=== PATIENT | female | born 1940 | race Caucasian/White ===

== ENCOUNTER 2019-02-06 15:18 | Inpatient (IN) ==
[2019-02-06] MEDS ORDERED: ASPIRIN PO ONE (16:19)
[2019-02-06 16:31] LABS: BASO# 0.04 X1000 (0.0-0.2); BASO% 0.4 % (0.0-0.8); EOS# 0.12 X1000 (0.0-0.7); EOS% 1.1 % (0.0-10.0); HEMOGLOBIN 14.7 g/dL (12.0-16.0); IMM GRAN# 0.02 X1000 (0.0-0.04); IMM GRAN% 0.2 % (0.0-0.5); LYMPH% 18.8 % (20.5-51.1); MCH 30.3 PG (27-31); MCV 94.8 FL (81-99); MONO# 0.71 X1000 (0.11-0.59); MONO% 6.4 % (1.7-9.3); MPV 10.7 FL (7.4-10.4); NEUT# 8.19 X1000 (1.4-6.5); NEUT% 73.1 % (42.2-75.2); PLT 261 X1000 (130-400); RBC 4.85 XMIL (4.2-5.4); RDW 13.6 % (11.5-14.5); WBC 11.18 X1000 (4.8-10.8)
[2019-02-06 16:36] LABS: PROTIME 13.3 Seconds (11.0-16.0)
[2019-02-06 16:37] LABS: PTT 27.7 Seconds (22.3-41.8)
[2019-02-06] MEDS ORDERED: G.I. COCKTAIL PO ONE (16:37)
[2019-02-06 17:01] LABS: ALB/GLOB RATIO 1.8; ALBUMIN 4.8 g/dL (3.5-5.0); CALCIUM 9.6 mg/dL (8.8-10.2); POTASSIUM 4.1 mmol/L (3.5-5.1); TOTAL BILIRUBIN 0.65 mg/dL (0.20-1.00); TOTAL PROTEIN 7.5 g/dL (6.3-8.3)
--- NOTE | 2019-02-06 17:22 | Diag Imaging Result Doc PS360 ---
CHEST-2 VIEWS - 02/06/2019 INDICATION: epigastric pain COMPARISON: None FINDINGS: Lung volumes are critically low. There is some patchy bibasilar atelectasis. Heart size is normal. The left hemidiaphragm is elevated. No pneumothorax or significant pleural effusion. IMPRESSION: Critically low lung volumes with nonspecific bibasilar atelectasis. Electronically signed by Patrick Cherry 02/06/2019 5:19 PM
--- NOTE | 2019-02-06 17:41 | EKG Report ---
Test Performed on : 02/06/2019 5:34:53 PM Test Reason : EPIGASTRIC PAIN Blood Pressure : / mmHG Vent. Rate : 075 BPM Atrial Rate : 075 BPM P-R Int : 164 ms QRS Dur : 076 ms QT Int : 408 ms P-R-T Axes : 031 000 048 degrees QTc Int : 455 ms Normal sinus rhythm. with sinus arrhythmia. Nonspecific ST abnormality Abnormal ECG No previous ECGs available Unconfirmed Result
[2019-02-06] MEDS ORDERED: ZOFRAN IV ONE (17:56)
[2019-02-06] MEDS ORDERED: CARAFATE LIQUID PO ONE (17:56)
[2019-02-06] MEDS ORDERED: DEMEROL IV ONE (17:57)
--- NOTE | 2019-02-06 18:52 | PROVIDER DOCUMENTATION ---
This chart was entered by Mirella Carrasquillo Scribe, acting as scribe for Fab Riley MD. HPI-Abdominal Pain/GI Problem - General Source: patient, family () - History of Present Illness-ABD Nature of Presenting Problems: 78 yowf presents to the ed with her after having a episode with epigastric pain, n/v and left anterior shoulder pain. pt sts pain onset was after eating lunch with her and called 911. [t sts pain is sharp and stinging and sts feels like her gerd is flaring up but is much worse then my normal feeling. pt on exam is nontoxic in appearance Abdominal Pain Onset Location: reports: epigastric Pain Radiation: reports: shoulder (anterior) Quality of Pain: reports: sharp Severity in ED: reports: moderate Onset/Duration: reports: this afternoon (1500) Timing: reports: improving, intermittent Activities at Onset: reports: light activity Exposure to sick contacts?: No Modifying Factors: worse with: eating Associated Symptoms: reports: diaphoresis, heartburn, nausea, vomiting, other (left shoulder). denies: back/neck pain, chest pain, cough, diarrhea, fever/chills, headaches, shortness of breath Last BM: last night Dark Stools Present?: reports: none noticed Rectal Bleeding: reports: none # of Diarrhea Episodes: 0 Rectal Pain: reports: none # of Vomiting Episodes: 1 Emesis Description: reports: none Bruising or Bleeding Gums?: No Similar Symptoms Previously?: Yes (gerd) Recently seen or treated by another doctor?: No <Fab Riley - Last Filed: 02/06/19 18:49> <Radha Lauren - Last Filed: 02/06/19 23:41> - General Chief Complaint: Epigastric Pain Stated Complaint: EPIGASTRIC PAIN Time Seen by Provider: 02/06/19 15:49 Allergies/Adverse Reactions: Patient Allergies Allergy/AdvReac Type Severity Reaction Status Date / Time Sulfa (Sulfonamide Allergy SHORTNESS Verified 02/06/19 15:50 Antibiotics) OF BREATH morphine AdvReac NAUSEA/VOMI Verified 02/06/19 15:50 TING Home Medications: Home Medication List Medication Instructions Recorded Confirmed Last Taken Type ATORVAstatin [Lipitor] 10 mg PO QHS 02/06/19 02/06/19 02/05/19 History Albuterol Sulfate [Proair Hfa] 8.5 gm INHALATION DIRECTED PRN 02/06/19 02/06/19 Unknown History Fluticasone Propionate 16 gm NS DIRECTED PRN PRN 02/06/19 02/06/19 Unknown History Ipratropium 0.03% Nasal [place] 1 spray INTRANASAL DAILY 02/06/19 02/06/19 02/04/19 History [Atrovent 0.03% Nasal [place]] Losartan Potassium 100 mg PO DAILY 02/06/19 02/06/19 02/06/19 History Montelukast Sodium [Singulair] 10 mg PO DAILY 02/06/19 02/06/19 02/05/19 History Oxybutynin Chloride [Oxybutynin 10 mg PO DAILY 02/06/19 02/06/19 02/06/19 History Chloride ER] Ropinirole HCl 1 mg PO DIRECTED 02/06/19 02/06/19 Unknown History Spironolactone 25 mg PO DAILY 02/06/19 02/06/19 02/05/19 History Review of Systems - Adult - REVIEW OF SYSTEMS - ADULT Constitutional: denies: chills, fever Eyes: reports: no symptoms reported Ears, Nose, Mouth & Throat: reports: no symptoms reported Cardiovascular: denies: chest pain, palpitations, syncope Respiratory: denies: cough, shortness of breath, wheezing Gastrointestinal: reports: see HPI, abdominal pain, frequent heartburn, nausea, vomiting. denies: diarrhea Genitourinary: reports: no symptoms reported Musculoskeletal: reports: see HPI, joint pain (left anterior shoulder). denies: back pain, neck pain Integumentary: reports: no symptoms reported Neurological: denies: dizziness/vertigo, headache/migraines Psychiatric: reports: no symptoms reported Endocrine: reports: no symptoms reported Hematologic/Lymphatic: reports: no symptoms reported Allergic/Immunologic: reports: no symptoms reported All Other Systems: Reviewed and Negative <Fab Riley - Last Filed: 02/06/19 18:49> Past History - Adult - PAST MEDICAL HISTORY-ADULT Review of Records: reports: Old Records Reviewed, Nursing Assessment Review, Medications Reviewed, Social history reviewed & non-contributory. Major Childhood Illnesses: reports: denies history Cardiovascular: reports: HTN, hyperlipidemia Respiratory: reports: asthma, sleep apnea Gastrointestinal: reports: GERD Obstetrical/Gynecological: reports: denies history Genitourinary: reports: denies history Musculoskeletal: reports: denies history Neurological: reports: denies history Psychiatric: reports: denies history Endocrine/Immune: reports: denies history Other Conditions: reports: other (restless legs syndrome) - PRIOR SURGERIES/PROCEDURES Surgical/Procedure History: reports: hysterectomy, other (colon sx) - IMMUNIZATION STATUS Childhood Immunizations: See Nurse Assessment Flu Vaccine: See Nurse Assessment - FAMILY HISTORY Family History: reviewed, not pertinent - SOCIAL HISTORY Smoking: denies Substance Use: alcohol Alcohol Use Frequency: occasionally Number of drinks per typical drinking period:: 3-4 drinks Living Situation: family <Fab Riley - Last Filed: 02/06/19 18:49> Physical Exam-General - PHYSICAL EXAM-ADULT Initial Vital Signs Reviewed: Yes - CONSTITUTIONAL General Appearance: appears well, alert, mild distress, obese - EYES Eyes: PERRL/EOMI, pink conjunctivae - HEAD, EARS, NOSE, MOUTH & THROAT HENMT: moist mucous membranes - NECK Neck: non-tender, full range of motion, supple, normal inspection - RESPIRATORY Respiratory: chest non-tender, lungs clear, normal breath sounds - CARDIOVASCULAR Cardiovascular: normal peripheral pulses, regular rate, rhythm - CHEST (BREASTS) Chest/Breast: deferred - GASTROINTESTINAL (ABDOMEN) Abdominal Exam: normal bowel sounds, soft, no organomegaly, no pulsatile mass, tenderness (epigastric). negative: distended, guarding, rigid, rebound - GENITOURINARY Female Genitalia/Pelvic Exam: deferred Rectal Exam: deferred Hemoccult Exam: deferred - LYMPHATIC Lymphatic: no adenopathy - MUSCULOSKELETAL Back Exam: normal inspection, no CVA tenderness, no vertebral tenderness Extremity: normal range of motion, non-tender, normal gait, normal inspection - SKIN Integumentary: normal color, normal turgor, warm/dry - NEUROLOGIC Neurologic: grossly normal - PSYCHIATRIC Psych/Mental Status: normal mood/affect, normal thought content, normal thought process, oriented x 3 <Fab Riley - Last Filed: 02/06/19 18:49> Progress - PLAN OF CARE/RESULTS Progress/Plan/Lab Results: Vital Signs - 8 hr 02/06/19 15:45 02/06/19 15:46 02/06/19 16:00 Temperature 97.7 F Pulse Rate 74 69 69 Respiratory Rate 18 15 17 Blood Pressure 196/95 O2 Sat by Pulse Oximetry 98 98 96 Laboratory Results - last 24 hr 02/06/19 02/06/19 02/06/19 16:15 16:15 16:15 WBC 11.18 H RBC 4.85 Hgb 14.7 Hct 46.0 MCV 94.8 MCH 30.3 MCHC 32.0 L RDW Std Deviation 13.6 Plt Count 261 MPV 10.7 H Immature Gran % (Auto) 0.2 Neut % (Auto) 73.1 Lymph % (Auto) 18.8 L Cooper % (Auto) 6.4 Eos % (Auto) 1.1 Baso % (Auto) 0.4 Immature Gran # (Auto) 0.02 Neut # (Auto) 8.19 H Lymph # (Auto) 2.10 Cooper # (Auto) 0.71 H Eos # (Auto) 0.12 Baso # (Auto) 0.04 PT INR PTT (Actin FS) Sodium 143 Potassium 4.1 Chloride 103 Carbon Dioxide 24 L Anion Gap 16 BUN 17 Creatinine 1.0 H Estimated GFR/1.73 m2 54 BUN/Creatinine Ratio 17 Glucose 132 H Calculated Osmolality 288 Calcium 9.6 Total Bilirubin 0.65 AST 15 ALT 10 Alkaline Phosphatase 73 Creatine Kinase 42 Troponin T Zrj-P-Ujxmqhetsde Pept 75 Total Protein 7.5 Albumin 4.8 Globulin 2.7 Albumin/Globulin Ratio 1.8 02/06/19 02/06/19 16:15 16:15 WBC RBC Hgb Hct MCV MCH MCHC RDW Std Deviation Plt Count MPV Immature Gran % (Auto) Neut % (Auto) Lymph % (Auto) Cooper % (Auto) Eos % (Auto) Baso % (Auto) Immature Gran # (Auto) Neut # (Auto) Lymph # (Auto) Cooper # (Auto) Eos # (Auto) Baso # (Auto) PT 13.3 INR 1.00 PTT (Actin FS) 27.7 Sodium Potassium Chloride Carbon Dioxide Anion Gap BUN Creatinine Estimated GFR/1.73 m2 BUN/Creatinine Ratio Glucose Calculated Osmolality Calcium Total Bilirubin AST ALT Alkaline Phosphatase Creatine Kinase Troponin T < 0.010 Lkl-K-Wdyfyuhfokv Pept Total Protein Albumin Globulin Albumin/Globulin Ratio Orders Category Date Time Status Cardiac Monitoring DIRECTED Care 02/06/19 16:20 Active Oxygen Therapy- ED Nursing DIRECTED Care 02/06/19 16:20 Active CHEST-2 VIEWS [RAD] Stat Exams 02/06/19 16:20 Taken CBC WITH ELECTRONIC DIFF [HEME] Stat Lab 02/06/19 16:15 Completed CK PROFILE [SP CHEM] Stat Lab 02/06/19 16:15 Completed COMPREHENSIVE METABOLIC PANEL [CHEM] Stat Lab 02/06/19 16:15 Completed PRO B-NATRIURETIC PEPTIDE Stat Lab 02/06/19 16:15 Completed PROTIME WITH INR [COAG] Stat Lab 02/06/19 16:15 Completed PTT [COAG] Stat Lab 02/06/19 16:15 Completed TROPONIN T Stat Lab 02/06/19 16:15 Completed Aspirin Med 02/06/19 16:19 Discontinued 325 mg PO NOW ONE [place]ido/[place] Alk/Al&mg Hydrox [G.i. Cocktail] Med 02/06/19 16:37 Discontinued 30 ml PO NOW ONE CP/SOB/Palp >45 yrs of Age Stat Oth 02/06/19 16:19 Ordered EKG [EKG] Stat Ther 02/06/19 16:20 Ordered Result Diagrams: 02/06/19 16:15 02/06/19 16:15 - REASSESSMENT Reassessment #1 Time Reassessed: 17:51 (pt given GI cocktail and vomited ) Status: unchanged - EKG 1 Time of EKG reading by physician:: 17:34 EKG Read and Signed by:: Fab Riley EKG Interpretation (*Must complete 3 of following elements*): Abnormal Rate: 75 Rhythm: nsr with sinus arrhythmia [place]: normal QRS: normal PA Interval: normal Prior EKG Comparison: no prior EKG Comments: nonspecific ST abnormality - XRAY 1 XRAY: Bilateral XRAY Study: Chest Impression: See EMR Report (CHEST-2 VIEWS - 02/06/2019 INDICATION: epigastric pain COMPARISON: None FINDINGS: Lung volumes are critically low. There is some patchy bibasilar atelectasis. Heart size is normal. The left hemidiaphragm is elevated. No pneumothorax or significant pleural effusion. IMPRESSION: Critically low lung volumes with nonspecific bibasilar atelectasis. Electronically signed by Patrick Cherry 02/06/2019 5:19 PM 02/06/19 2156 Interpreting Physician: Patrick Cherry MD Dictated Date/Time: 02/06/19 1701 cc: Fab Riley MD; None,PCP) - CHANGE OF SHIFT REPORT (ED Provider) 1 Report Given and Care Transferred to:: Dr Lauren Time of Transfer: 19:00 Items Pending: Labs, Other (meds) <Fab Riley - Last Filed: 02/06/19 18:49> - PLAN OF CARE/RESULTS Progress/Plan/Lab Results: Vital Signs - 8 hr 02/06/19 15:45 02/06/19 15:46 02/06/19 16:00 Temperature 97.7 F Pulse Rate 74 69 69 Respiratory Rate 18 15 17 Blood Pressure 196/95 O2 Sat by Pulse Oximetry 98 98 96 02/06/19 16:15 02/06/19 16:30 02/06/19 16:54 Temperature Pulse Rate 65 64 68 Respiratory Rate 19 23 14 Blood Pressure O2 Sat by Pulse Oximetry 96 97 98 02/06/19 17:00 02/06/19 17:27 02/06/19 17:30 Temperature Pulse Rate 70 92 H Respiratory Rate 21 27 H Blood Pressure O2 Sat by Pulse Oximetry 96 96 93 L 02/06/19 17:45 02/06/19 18:00 02/06/19 18:15 Temperature Pulse Rate 74 76 74 Respiratory Rate 19 15 21 Blood Pressure O2 Sat by Pulse Oximetry 94 L 94 L 93 L 02/06/19 18:30 02/06/19 18:45 02/06/19 19:00 Temperature Pulse Rate 73 68 68 Respiratory Rate 20 21 21 Blood Pressure O2 Sat by Pulse Oximetry 92 L 92 L 92 L Laboratory Results - last 24 hr 02/06/19 02/06/19 02/06/19 16:15 16:15 16:15 WBC 11.18 H RBC 4.85 Hgb 14.7 Hct 46.0 MCV 94.8 MCH 30.3 MCHC 32.0 L RDW Std Deviation 13.6 Plt Count 261 MPV 10.7 H Immature Gran % (Auto) 0.2 Neut % (Auto) 73.1 Lymph % (Auto) 18.8 L Cooper % (Auto) 6.4 Eos % (Auto) 1.1 Baso % (Auto) 0.4 Immature Gran # (Auto) 0.02 Neut # (Auto) 8.19 H Lymph # (Auto) 2.10 Cooper # (Auto) 0.71 H Eos # (Auto) 0.12 Baso # (Auto) 0.04 PT INR PTT (Actin FS) Sodium 143 Potassium 4.1 Chloride 103 Carbon Dioxide 24 L Anion Gap 16 BUN 17 Creatinine 1.0 H Estimated GFR/1.73 m2 54 BUN/Creatinine Ratio 17 Glucose 132 H Calculated Osmolality 288 Calcium 9.6 Total Bilirubin 0.65 AST 15 ALT 10 Alkaline Phosphatase 73 Creatine Kinase 42 Troponin T Hsq-A-Gqcjfabjard Pept 75 Total Protein 7.5 Albumin 4.8 Globulin 2.7 Albumin/Globulin Ratio 1.8 02/06/19 02/06/19 02/06/19 16:15 16:15 20:45 WBC RBC Hgb Hct MCV MCH MCHC RDW Std Deviation Plt Count MPV Immature Gran % (Auto) Neut % (Auto) Lymph % (Auto) Cooper % (Auto) Eos % (Auto) Baso % (Auto) Immature Gran # (Auto) Neut # (Auto) Lymph # (Auto) Cooper # (Auto) Eos # (Auto) Baso # (Auto) PT 13.3 INR 1.00 PTT (Actin FS) 27.7 Sodium Potassium Chloride Carbon Dioxide Anion Gap BUN Creatinine Estimated GFR/1.73 m2 BUN/Creatinine Ratio Glucose Calculated Osmolality Calcium Total Bilirubin AST ALT Alkaline Phosphatase Creatine Kinase Troponin T < 0.010 < 0.010 Lkm-V-Edpdgtrbydn Pept Total Protein Albumin Globulin Albumin/Globulin Ratio Orders Category Date Time Status Cardiac Monitoring DIRECTED Care 02/06/19 16:20 Active Oxygen Therapy- ED Nursing DIRECTED Care 02/06/19 16:20 Active CHEST-2 VIEWS [RAD] Stat Exams 02/06/19 16:20 Completed CBC WITH ELECTRONIC DIFF [HEME] Stat Lab 02/06/19 16:15 Completed CK PROFILE [SP CHEM] Stat Lab 02/06/19 16:15 Completed COMPREHENSIVE METABOLIC PANEL [CHEM] Stat Lab 02/06/19 16:15 Completed PRO B-NATRIURETIC PEPTIDE Stat Lab 02/06/19 16:15 Completed PROTIME WITH INR [COAG] Stat Lab 02/06/19 16:15 Completed PTT [COAG] Stat Lab 02/06/19 16:15 Completed TROPONIN T Stat Lab 02/06/19 16:15 Completed TROPONIN T Stat Lab 02/06/19 20:45 Completed Aspirin Med 02/06/19 16:19 Discontinued 325 mg PO NOW ONE [place] Alk/Al&mg Hydrox [G.i. Cocktail] Med 02/06/19 16:37 Discontinued 30 ml PO NOW ONE Meperidine [Demerol] Med 02/06/19 17:57 Discontinued 25 mg IV NOW ONE Ondansetron Odt [Zofran Odt] Med 02/06/19 19:31 Discontinued 4 mg PO NOW ONE Ondansetron [Zofran] Med 02/06/19 17:56 Discontinued 4 mg IV NOW ONE Sucralfate [Carafate Liquid] Med 02/06/19 17:56 Discontinued 1 gm PO NOW ONE CP/SOB/Palp >45 yrs of Age Stat Oth 02/06/19 16:19 Ordered EKG [EKG] Stat Ther 02/06/19 16:20 Draft Patient signed out to me pending repeat trop and reeval. Patient has continued to vomit up medications given PO and fails PO challenge. CT Abd pelvis ordered showing concern for obstructed hiatal hernia. Spoke to Dr Jamil, stone spreader operator for general surgery who wanted NGT placed, admit to hospitalist and will see patient in the AM. Spoke to Dr Rawls stone spreader operator for hospitalist who accepted patient for admission. Result Diagrams: 02/06/19 16:15 02/06/19 16:15 - CONSULTS/PCP/HOSPITALIST Notification #1 *Consult/PCP/Hospitalist*: Dr Jamil Time Discussed: 23:22 Consult Disposition: other (NGT, admit to hospitalist, will see pt in the AM) #2 Consult: Dr Rawls Time Discussed: 22:35 Consult Disposition: Admit <Radha Lauren - Last Filed: 02/06/19 23:41> Departure - Critical Care Note This patient required my direct & personal management of CC.: No <Fab Riley - Last Filed: 02/06/19 18:49> - Departure Date of Disposition Decision: 02/06/19 Time of Disposition Decision: 21:28 Certified Medical Emergency: Emergent <Radha Lauren - Last Filed: 02/06/19 23:41> - Departure DIAGNOSIS: Epigastric abdominal pain, Intractable nausea and vomiting, Hiatal hernia with obstruction but no gangrene, Pneumonia Disposition: ADMITTED INPATIENT 09 Condition: Stable Additional Instructions: ED Follow Up Instructions: You have been treated by a care provider in the Emergency Department. These instructions are being provided to you so you can have an understanding of how to care for yourself upon discharge. Upon discharge from the Emergency Department, you are responsible for making arrangements for follow-up care by a physician of your choice. Take all prescribed medications as directed. Return to the Emergency Department immediately for any new or worsening symptoms. You may call the Physician Referral phone number at [phone] to obtain a list of Physicians who are taking new patients. Referrals and Follow-Ups: None,PCP [Primary Care Provider] - Attestation - Physician/ TAYLA Attestation Patient care was provided by Advanced Practice Provider:: No The physician spent face to face time with patient:: Yes Advanced Practice Provider documentation review:: Supervising physician onsite and consulted in the evaluation and care of this patient. The physician did have a face to face encounter with the patient. <Fab Riley - Last Filed: 02/06/19 18:49> This chart was documented by the indicated scribe, (Mirella Carrasquillo Scribe) and accurately reflects the services I performed and decisions made by me, Fab Riley MD, as attested by the provider's signature.
[2019-02-06] MEDS ORDERED: ZOFRAN ODT PO ONE (19:31)
[2019-02-06] MEDS ORDERED: PHENERGAN IM ONE (21:38)
[2019-02-06] MEDS ORDERED: ZITHROMAX 500 MG/NS 500 MG/250 ML IVPB IV ONE (23:36)
[2019-02-06] MEDS ORDERED: ROCEPHIN 1 GM in NS 50 ML IV ONE (23:36)
[2019-02-07] MEDS ORDERED: DUONEB (A & A) INH PRN (00:20)
[2019-02-07] MEDS ORDERED: ZOFRAN IV PRN (00:20)
[2019-02-07] MEDS ORDERED: ROCEPHIN ONE (01:08)
[2019-02-07] MEDS ORDERED: NS 50 ML ONE (01:08)
[2019-02-07] MEDS: ROCEPHIN 1 GM in NS 50 ML IV SCH (01:09)
--- NOTE | 2019-02-07 01:58 | HISTORY AND PHYSICAL ---
PRIMARY CARE PROVIDER: Is in [place]. DUST COLLECTOR ORE CRUSHING: Is in [place]. CHIEF COMPLAINT: Abdominal pain. HISTORY OF PRESENT ILLNESS: Ms. Conde is a 78-year-old female who carries a past medical history of hypertension, hyperlipidemia, asthma, sleep apnea, GERD, hiatal hernia, restless leg syndrome, wears home O2 at night. After having a hysterectomy in 2008. She has had part of her colon removed secondary to a flat polyp. She reports her and her were on their way from [place] to [place] for vacation, they stopped to have lunch and she started having an immediate episode of epigastric pain with nausea and vomiting that radiated to the left side of her back, the pain was sharp and burning, it felt like she was having heartburn, but much worse. Workup in the ED with abdomen and pelvis CT showed small bowel obstruction, and per ED report pneumonia. She was initiated on IV antibiotics, made NPO, consulted Dr. Jamil. An NG tube will be placed. We will continue with IV fluids, IV antibiotics, antiemetic, and pain regimen. The patient is currently belching in the room, she has had a bowel movement while in the ED, not currently passing any gas, and reports she just had a colonoscopy a month ago in [place]. PAST MEDICAL HISTORY: 1. Hypertension. 2. Hyperlipidemia. 3. Asthma. 4. Sleep apnea. 5. Gastroesophageal reflux disease. 6. Restless leg syndrome. 7. Home O2 at night. PAST SURGICAL HISTORY: 1. Hysterectomy in 2008. 2. Partial colon removal secondary to a flat polyp. 3. Colonoscopy 1 month ago. FAMILY HISTORY: Noncontributory. SOCIAL HISTORY: She is . She lives in [place]. Only occasional alcohol. No tobacco or illicit drug use. ALLERGIES: Sulfa causes shortness of breath. Morphine causes nausea and vomiting. HOME MEDICATIONS: 1. ProAir inhaler. 2. Lipitor. 3. Fluticasone. 4. Ipratropium. 5. Atrovent. 6. Losartan. 7. Singulair. 8. Oxybutynin. 9. Requip. 10. Spironolactone. REVIEW OF SYSTEMS: Twelve-point review of systems was completely negative except for those mentioned in the HPI. PHYSICAL EXAMINATION: VITAL SIGNS: Temperature 97.7 degrees, heart rate 68, respirations 22, blood pressure is anywhere from 92%-98%, blood pressure 196/95. GENERAL: Ms. Alarcon is a 78-year-old female who is sitting on the side of bed, hunched over, belching, complaining of abdominal pain that radiates to her back. HEENT: Atraumatic, normocephalic. PERRL. NECK: Supple. Trachea midline. CARDIOVASCULAR: S1, S2 appreciated. No murmurs, gallops or rubs noted. RESPIRATORY: Lung sounds clear bilaterally. GI: Tender to palpation. Hypoactive bowel sounds. EXTREMITIES: No signs of clubbing or cyanosis. IMAGING: Abdomen CT showed small bowel obstruction and pneumonia. Chest x-ray, critically low lung volumes with nonspecific bibasilar atelectasis. LABORATORY DATA: White count of 11, hemoglobin and hematocrit 14 and 46, platelet count is 261,000. Sodium 143, potassium 4.1, BUN 17, creatinine 1, blood glucose is 132. Two sets of cardiac enzymes have been negative. ASSESSMENT AND PLAN: 1. Small bowel obstruction. ED has spoke with Dr. Jamil, they request an NG be placed. The patient is currently belching. She has had a bowel movement while in the ED. She is not currently passing gas. We will start her on IV fluids, make her NPO, antiemetics, and pain regimen. We will do a follow up KUB in the a.m., and await Dr. Jamil's recommendation. 2. Possible pneumonia seen on CT imaging, currently awaiting the final report. She has already been started on antibiotics. We will continue with antibiotics and follow up with a chest x- ray in the a.m. The patient does not complain of any cough, fever or chills. 3. Hypoxemia. The patient does wear home O2 at night. We will continue with supplemental O2. 4. Asthma. We will do p.r.n. DuoNeb, currently not in any exacerbation. 5. Hypertension. 6. Hyperlipidemia. 7. Gastroesophageal reflux disease. We will start her on a proton pump inhibitor. 8. Restless leg syndrome. 9. Acute kidney injury. We will continue with IV hydration, recheck her creatinine in the a.m. 10. Further recommendation to follow physician evaluation, laboratory and diagnostic data. Dictated by JONI Rivers for Chidi Rawls MD I have performed a face to face diagnostic evaluation. Labs/xrays- reviewed. Exam- Chest- clear, CV- regular, Abd- diffuse tenderness. A/P- Small bowel Obstruction- Admit, NG, IV fluids, NPO, General surgery consult. Dr. Rawls. cc: Chidi Rawls MD [facility]
[2019-02-07] MEDS: ZITHROMAX 500 MG/NS 500 MG/250 ML IVPB IV SCH (02:29)
[2019-02-07 05:17] LABS: BASO# 0.02 X1000 (0.0-0.2); BASO% 0.1 % (0.0-0.8); EOS# 0.01 X1000 (0.0-0.7); EOS% 0.1 % (0.0-10.0); HEMATOCRIT 43.9 % (37.0-47.0); HEMOGLOBIN 14.4 g/dL (12.0-16.0); IMM GRAN# 0.02 X1000 (0.0-0.04); IMM GRAN% 0.1 % (0.0-0.5); LYMPH# 1.21 X1000 (1.2-3.4); LYMPH% 8.7 % (20.5-51.1); MCHC 32.8 g/dL (33-37); MCV 94.4 FL (81-99); MONO# 0.97 X1000 (0.11-0.59); MPV 10.3 FL (7.4-10.4); NEUT# 11.63 X1000 (1.4-6.5); PLT 256 X1000 (130-400); RBC 4.65 XMIL (4.2-5.4); RDW 13.5 % (11.5-14.5); WBC 13.86 X1000 (4.8-10.8)
[2019-02-07 05:37] LABS: ALB/GLOB RATIO 1.5; ALBUMIN 4.5 g/dL (3.5-5.0); CALCIUM 9.9 mg/dL (8.8-10.2); MAGNESIUM 2.1 mg/dL (1.5-2.7); POTASSIUM 4.1 mmol/L (3.5-5.1); TOTAL BILIRUBIN 0.6 mg/dL (0.20-1.00); TOTAL PROTEIN 7.5 g/dL (6.3-8.3)
[2019-02-07] MEDS: SODIUM CHLORIDE 0.9% INJ SCH (06:26)
[2019-02-07] MEDS: PEPCID IV SCH ×2 (06:27→17:37)
--- NOTE | 2019-02-07 06:39 | Diag Imaging Result Doc PS360 ---
CHEST-PORTABLE - 02/07/2019 INDICATION: ng placement COMPARISON: 02/06/2019 FINDINGS: There is a nasogastric tube in good position in the stomach. IMPRESSION: Nasogastric tube in good position in the stomach. Electronically signed by Patrick Cherry 02/07/2019 6:37 AM
--- NOTE | 2019-02-07 06:57 | Diag Imaging Result Doc PS360 ---
CHEST-PORTABLE - 02/07/2019 INDICATION: pna COMPARISON: 02/07/2019 FINDINGS: Stable nasogastric tube in good position. Stable left hemidiaphragm elevation. Stable adjacent atelectasis or infiltrate. There is some faint atelectasis or infiltrate at the right lower lobe as well. Heart size is top normal. No large pleural effusion. IMPRESSION: Nonspecific bibasilar atelectasis or infiltrates. Electronically signed by Patrick Cherry 02/07/2019 6:55 AM
--- NOTE | 2019-02-07 06:58 | Diag Imaging Result Doc PS360 ---
KUB ABDOMEN - 02/07/2019 INDICATION: SBO COMPARISON: None FINDINGS: There is a nonobstructive bowel gas pattern. No free air or abdominal calcifications. Average amount of stool in the colon. IMPRESSION: No acute disease. Electronically signed by Patrick Cherry 02/07/2019 6:56 AM
--- NOTE | 2019-02-07 07:30 | Diag Imaging Result Doc PS360 ---
EXAM: CT ABDOMEN/PELVIS W/O CONTRAST INDICATION: n/v, intractable TECHNIQUE: This exam was performed using automated exposure control, adjustment of mA or kV according to patient size, and/or use of iterative reconstruction technique. COMPARISON: None. FINDINGS: There is a large diaphragmatic hernia on the left the stomach is moderately distended. There is subsegmental atelectasis +/- infiltrate at both lung bases. The GE junction remains below the diaphragm. There is no esophageal distention. The gallbladder, liver, spleen, pancreas, and adrenal glands are unremarkable. There is a small right renal cyst. The kidneys are essentially unremarkable, otherwise. The urinary bladder is largely nondistended and is unremarkable, otherwise. There is a surgical staple line associated with the descending colon. There is uncomplicated diverticulosis coli. The appendix is normal. There is multilevel spondylosis. IMPRESSION: 1.Large left diaphragmatic hernia with a portion of the stomach in the hernial sac that is distended partial obstruction cannot be excluded. However, the esophagus is not dilated. 2.Bibasilar atelectasis +/- infiltrate. 3.Other incidental/nonacute findings detailed above. Electronically signed by John Foley 02/07/2019 7:28 AM
[2019-02-07] MEDS: NS 1,000 ML IV SCH ×3 (09:24→19:57)
--- NOTE | 2019-02-07 10:55 | Diag Imaging Result Doc PS360 ---
EXAM: GI SERIES PARTIAL INDICATION: Evaluate for stomach obstruction TECHNIQUE: Barium contrast was infused via an indwelling NG tube under fluoroscopy. Spot images were obtained. COMPARISON: No prior upper GIs available for comparison. Comparison is to a recent CT of the abdomen and pelvis without contrast dated 02/06/2019 FINDINGS: The large left paraesophageal hernia seen on the previous study is again identified. Upon infusion, barium filled the antrum of the stomach initially. Although there is narrowing of the stomach at the gastric body as it passes through the diaphragmatic defect, barium did appear to pass freely into the fundus of the stomach indicating that there is no complete obstruction. Toward the end of the study, there was some reflux of barium into the esophagus. IMPRESSION: Large paraesophageal hernia that was also seen on the recent CT. However, barium flowed freely through the diaphragmatic defect indicating that there is no complete obstruction. Electronically signed by Jhon Foley 02/07/2019 10:53 AM
--- NOTE | 2019-02-07 15:15 | GENERAL SURGERY CONSULTATION ---
DATE: 02/07/2019 TIME: 2:45 p.m. HISTORY OF PRESENT ILLNESS: Ms Alarcon is feeling better. I have been asked to see her regarding her hiatal hernia. She was admitted last night with the chest pain, nausea, and vomiting. Also reported heartburn. She has a known hiatal hernia but has never had symptoms such as this. Her CT scan suggested a significant herniated stomach with even possible obstruction. She was admitted with an NG tube placed. She had a cardiac workup that was negative. PAST MEDICAL HISTORY: Her past history is pertinent for hypertension, hyperlipidemia, asthma, sleep apnea, gastroesophageal reflux, restless legs. PAST SURGICAL HISTORY: Previous surgeries include partial colon resection and a hysterectomy She has had EGDs and colonoscopies in the past. A recent colonoscopy showed her colon to be clear. MEDICATIONS AT HOME: Include an inhaler, Lipitor, fluticasone, ipratropium, Atrovent, losartan, Singulair, oxybutynin, Requip, and Aldactone. ALLERGIES: She has an allergy to sulfa and morphine. SOCIAL HISTORY: She is . She lives in [place]. She rarely drinks alcohol. Denies tobacco or illicit drug use. FAMILY HISTORY: Not known. REVIEW OF SYSTEMS: Negative in all the other ten subsystems except the ones noted above. PHYSICAL EXAMINATION: Vital Signs: She is afebrile. Heart rate is 93, blood pressure 159/86. No cervical adenopathy. Bilateral breath sounds. Heart: Regular rate and rhythm. Abdomen: Soft. She is nontender. No peripheral edema. She is sleepy but she arouses and answered questions. DIAGNOSTIC DATA: CT scan shows the hiatal hernia, it looks like a paraesophageal hernia with a portion of the distal stomach in the chest. An upper GI showed that the contrast went from the proximal stomach into the distal stomach without difficulty. ASSESSMENT: Symptomatic hiatal hernia, paraesophageal type. PLAN: I have discussed surgery with them. I have discussed the plan to repair the defect in the diaphragm and do a wrap of the upper stomach, and even possibly tack the distal stomach. I discussed with them that if she continues satisfactory that she could actually try liquids and go home to have this done, if that is what they prefer, but right now, we do have her scheduled for surgery on Monday the if she present wants to proceed in-house here. We discussed the benefits and risks of the surgery, and they understand. cc: Carlos Enrique Jamil MD
--- NOTE | 2019-02-07 16:36 | PROGRESS NOTE ---
DATE: 02/07/2019 SUBJECTIVE: Ms. Conde is a 78-year-old. She was on her way from [place] to [place], stopped at a restaurant here in [place], and she developed nausea, vomiting, and pain around the left side of her back. The pain was sharp and burning, felt like having heartburn, but much worse. Workup in the ER, abdominal and pelvic CT suggested maybe small-bowel obstruction. However, she had seen Dr. Jamil and he felt like she had symptomatic hiatal hernia. PAST MEDICAL HISTORY: 1. Hypertension. 2. Hyperlipidemia. 3. Asthma. 4. Sleep apnea. 5. Gastroesophageal reflux disease. 6. Restless legs syndrome. 7. Home O2 at night. PAST SURGICAL HISTORY: 1. Hysterectomy in 2008. 2. Partial colon removed secondary to a flat polyp. 3. Colonoscopy one month ago. OBJECTIVE: She is comfortable, has an NG tube in place, was sleeping, easy to arouse. Temperature 97.8 degrees, pulse 79, respirations 16, blood pressure 141/85. Pupils are equal and round. Lungs: Clear in all lung leon. Cardiovascular: Regular in rate without murmur or S3. Good urine output. LABORATORY DATA: Review of her lab from today: White count 13,860, hematocrit 43, platelet count 256,000. Sodium 145, potassium 4.1, chloride 105, BUN 18, creatinine 1.0. AST 14, ALT is 8, albumin is 4.5. ProTime is 13. ASSESSMENT AND PLAN: Symptomatic hiatal hernia. Esophageal type. Dr. Jamil has discussed plan to repair the defect in the diaphragm and do a wrap of the upper stomach, even possibly track the distal stomach. If she continues satisfactorily, she could try liquids, and go home and have this done if that is what they prefer. She feels better. Continue NG tube suction. Review of her orders: She is getting ceftriaxone 1 g q.24 hours, azithromycin 500 mg IV q.24 hours, aspirin 325 mg (got 1 dose). There was a question on whether she had an infiltrate by CT scan, so that is why we started the antibiotics. We will follow up with chest x-ray. Clinically, not sure if she has a pneumonia. She has some supplemental O2. Blood pressures appear well controlled. I looked over her list of medications at home. I think we can hold most of it. Continue current medications. She is on Pepcid 20 mg IV q.12. cc: Carlos Haro MD
[2019-02-08] MEDS: ROCEPHIN 1 GM in NS 50 ML IV SCH (00:31)
[2019-02-08] MEDS: ZITHROMAX 500 MG/NS 500 MG/250 ML IVPB IV SCH (02:05)
[2019-02-08 05:21] LABS: URINE SOURCE CLEAN CATCH
[2019-02-08 05:24] LABS: BILIRUBIN URINE NEGATIVE (NEGATIVE); BLOOD URINE NEGATIVE (NEGATIVE); COLOR YELLOW; GLUCOSE URINE NEGATIVE (NEGATIVE); KETONE URINE 10 mg/dL (NEGATIVE); LEUKOCYTES URINE MODERATE (NEGATIVE); NITRITE URINE NEGATIVE (NEGATIVE); PROTEIN URINE TRACE mg/dL (NEGATIVE); SP GRAVITY URINE 1.024; TURBIDITY URINE CLEAR (CLEAR); UR EPITHELIAL CELLS <10 /HPF (<10); URINE BACTERIA NEGATIVE /HPF; URINE RBC <10 /HPF (<10); URINE WBC TNTC /HPF (<10); UROBILINOGEN URINE NORMAL (NORMAL)
[2019-02-08] MEDS: NS 1,000 ML IV SCH ×4 (05:52→22:12)
[2019-02-08] MEDS: SODIUM CHLORIDE 0.9% INJ SCH (06:12)
[2019-02-08] MEDS: PEPCID IV SCH ×3 (06:12→18:34)
[2019-02-08 07:23] LABS: BASO# 0.05 X1000 (0.0-0.2); BASO% 0.5 % (0.0-0.8); EOS# 0.19 X1000 (0.0-0.7); EOS% 1.8 % (0.0-10.0); HEMATOCRIT 38.4 % (37.0-47.0); HEMOGLOBIN 12.3 g/dL (12.0-16.0); LYMPH# 2.21 X1000 (1.2-3.4); LYMPH% 21.5 % (20.5-51.1); MCH 31.1 PG (27-31); MCV 97.2 FL (81-99); MONO# 1.24 X1000 (0.11-0.59); MONO% 12.1 % (1.7-9.3); MPV 10.6 FL (7.4-10.4); NEUT% 64.1 % (42.2-75.2); PLT 221 X1000 (130-400); RBC 3.95 XMIL (4.2-5.4); RDW 13.8 % (11.5-14.5); WBC 10.29 X1000 (4.8-10.8)
[2019-02-08] MEDS ORDERED: DIPRIVAN 1% ONE (08:47)
[2019-02-08] MEDS ORDERED: FENTANYL ONE (08:56)
[2019-02-08] MEDS ORDERED: NORCURON ONE (08:57)
[2019-02-08] MEDS ORDERED: QUELICIN (DOSE) ONE (08:57)
[2019-02-08] MEDS ORDERED: ROBINUL ONE ×2 (08:57→10:49)
[2019-02-08] MEDS ORDERED: XYLOCAINE-MPF 2% ONE (08:57)
[2019-02-08] MEDS ORDERED: STERILE WATER INJ. ONE (08:57)
[2019-02-08] MEDS ORDERED: MARCAINE 0.25% PF/EPI 1:200,000 ONE (09:32)
[2019-02-08] MEDS ORDERED: LR 1,000 ML ONE (09:32)
[2019-02-08] MEDS ORDERED: DECADRON ONE (10:26)
[2019-02-08] MEDS ORDERED: ZOFRAN ONE (10:26)
[2019-02-08] MEDS ORDERED: DILAUDID ONE ×2 (10:29→13:14)
[2019-02-08] MEDS ORDERED: NEOSTIGMINE ONE (10:49)
[2019-02-08] MEDS ORDERED: BRIDION ONE (11:21)
[2019-02-08 12:26] LABS: URINE SOURCE CATH
[2019-02-08 12:36] LABS: BILIRUBIN URINE NEGATIVE (NEGATIVE); BLOOD URINE SMALL (NEGATIVE); CLARITY CLEAR (CLEAR); COLOR YELLOW; GLUCOSE URINE NEGATIVE (NEGATIVE); KETONE URINE 15 mg/dL (NEGATIVE); LEUKOCYTES URINE TRACE (NEGATIVE); NITRITE URINE NEGATIVE (NEGATIVE); PROTEIN URINE NEGATIVE (NEGATIVE); SP GRAVITY URINE 1.025; UROBILINOGEN URINE 0.2 EU/dL (0.2-1.0)
[2019-02-08 12:46] LABS: URINE WBC <10 /HPF (<10)
[2019-02-08 12:56] LABS: URINE BACTERIA NEGATIVE /HFP; URINE EPITHELIAL CELLS <10 /HPF (<10); URINE RBC <10 /HPF (<10)
--- NOTE | 2019-02-08 14:47 | OPERATIVE NOTE ---
PROCEDURE DATE: 02/08/2019 PROCEDURE PERFORMED: 1. Laparoscopic diaphragmatic hernia repair. 2. Laparoscopic Bart fundoplication. 3. Laparoscopic gastropexy. SURGEON: Carlos Enrique Jamil MD ECONOMICS INSTRUCTOR: Shay Camacho RN, and Jackie. PREOPERATIVE DIAGNOSIS: Large incarcerated diaphragmatic hernia with symptoms. POSTOPERATIVE DIAGNOSIS: Large incarcerated diaphragmatic hernia with symptoms. FINDINGS: Was a paraesophageal hiatal hernia and a separate defect in the diaphragm, through which there was incarcerated stomach contiguous with the hiatus. The stomach had been incarcerated for some time. There was quite a few adhesions and it was not that easy to reduce the stomach out of the diaphragm hernia. DESCRIPTION OF PROCEDURE: Satisfactory general endotracheal anesthesia was achieved. The patient was placed in Carlos stirrups. The abdomen was prepped and draped in a sterile fashion. We anesthetized the skin 15 cm below the xiphoid process in the midline, made a vertical incision, dissected down to the fascia. We scored the fascia, introduced an 11 trocar. Under direct visualization we introduced the 11 trocar in the left mid abdomen. We then placed the patient in reverse Trendelenburg. We anesthetized the skin in the right upper quadrant. We made a small incision, introduced the hemostat into the abdominal cavity and introduced the medium size Devendra retractor for the left lobe of the liver. We placed it under the left lobe of the liver and secured it to the Devendra retractor. We further placed the patient in reverse Trendelenburg to the extent that she would go. Under direct visualization, I used an 11 trocar in the midepigastrium and another in the left upper quadrant. We then noted the stomach going into the diaphragm. We then reduced the stomach out of the mediastinum and this actually was not that easy to do, but we were able to get completely reduced. In investigating the holes in the diaphragm and there was the hiatus which was enlarged and there was also another defect just contiguous to the hiatus to the left with some muscle between the hiatus and this other defect. We then began incising the gastrohepatic ligament with the LigaSure. We entered the mediastinum and the space inside the right shanti. We then began reducing the hernia sac out of the mediastinum. After doing that, over to the esophagus we then lifted it up the greater omentum and divided the greater omentum from the greater curvature using the LigaSure. We did that all the way up to the hiatus. It is here where we really identified the other defect in the diaphragm. We differentiated between some of the medial muscle of the left shanti and the lateral muscle through which there was a defect. We reduced the hernia sac out of the mediastinum on the left side as well and actually excised it and handed it off as a specimen. So, we felt that we had adequately reduced the hernia sac out of the mediastinum. We then turned our attention back to the right side. We cleaned off the tissue behind the stomach and the gastroesophageal junction enough to identify the left shanti from the right side. We identified the posterior vagus and avoided harm to it. I never did identify the anterior vagus for certain. The small Cook catheter was then advanced into the stomach and then the large 53 bougie was advanced and we were able to gauge the appropriate sized of the hiatus that we sought. I then had them pull the large bougie back and I then placed 0 6 silk Endo Stitch right at the level that I thought was appropriate to close the hiatus. After that we use Surgidac stitch Endo stitches from that point caudad to completely approximate the crura as they came toward the posterior aspect of the abdomen. I turned my attention to the left side and then we placed some silk and Surgidac stitches to close the hole in the left shanti, thereby repairing that diaphragmatic hernia. I once again, passed the 53 bougie and then we had gauged this appropriately and the esophagus then completely occupied the hiatus with the [address] I was satisfied with that. We then passed our reticulating grasper around the esophagus and grasped the fundus and delivered it around the esophagus safely and carefully. I then used a 0 silk endo-stitch to go from the anterior stomach to the esophagus to the wrapped stomach and it came together nicely. After we did that, we then pulled the 53 bougie back. I did add 1 additional Surgidac stitch 1.5 cm caudad to the original stitch to complete the wrap. I then took a 0 silk Endo Stitch and secured the wrap to the posterior crura down where they came together. At this point, we were satisfied that we had repaired the diaphragmatic hernia and a hiatal hernia appropriately. We wrapped the stomach safely around inadequate gauge that is a 53 bougie and I felt that was now appropriate to pex the stomach down to the anterior abdominal wall. We changed laparoscope to the epigastric trocar. We then removed the 11 trocar above the umbilicus. We passed an Endo Stitch through the stomach through the hole 1st and then we used the Torin-Mau to pull the silk stitches through the fascia. We held them with a hemostats outside the abdominal wall. I then replaced the 11 trocar. We then proceeded to take the retractor out from under the stomach and let it relax. There was no evidence of bleeding. We used a Torin-Mau at each trocar site to past a 2-0 Polysorb to close the abdominal wall including the one above the umbilicus. We did this under direct visualization, to be certain that we did not injure the stomach or grab the stomach with the stitches. After these had been placed, I then was able to secure that silk stitch through the abdominal wall to pex the stomach up. Under direct visualization, we passed another stitch through the fascia and we took care not to grasp the stomach. We then removed our laparoscoped and tied all the other stitches. We then closed the skin at each incision with 4-0 Polysorb subcuticular stitches. Sterile OpSites were applied. She tolerated it well and was sent to the recovery room in satisfactory condition. cc: Carlos Enrique Jamil MD
[2019-02-08] MEDS ORDERED: REQUIP PO SCH (16:00)
--- NOTE | 2019-02-08 16:10 | PROGRESS NOTE ---
DATE: 02/08/2019 SUBJECTIVE: The patient is resting in bed. She is status post diaphragmatic hernia repair, Bart fundoplication, as well as gastropexy. OBJECTIVE: vital signs: Temperature is 97.5, pulse 75, respirations 16, blood pressure 155/85, oxygen saturation 99%. HEENT: Atraumatic, normocephalic. Cardiovascular: S1, S2. Respiratory system: Evidence of good air entry. Abdomen: Nondistended. Wound site dressed. Extremities: No evidence of edema. Central nervous system: No obvious focal deficit noted. LABORATORY DATA: WBC is 10.29, hematocrit 38.4, with a platelet count of 221,000. ASSESSMENT AND PLAN: 1. Large incarcerated diaphragmatic hernia, symptomatic. Status post laparoscopic diaphragmatic hernia repair, Bart fundoplication, gastropexy. Surgery following. Optimize pain control. Maintain patient on deep vein thrombosis prophylaxis. Recommend physical therapy when okay with Surgery. Recommend incentive spirometry. Continue current regimen. 2. Bronchial asthma. Nebulized bronchodilators as needed. 3. Gastroesophageal reflux disease. Maintain patient on proton pump inhibitor. 4. Hypoxemia. Maintain patient on oxygen to keep saturations above 90. 5. Obstructive sleep apnea. The patient can use her CPAP machine as she does have one from home. 6. Restless legs syndrome. Continue ropinirole. 7. Deep vein thrombosis prophylaxis. Sequential compression devices. cc: Porfirio Almaguer MD
--- NOTE | 2019-02-08 16:15 | PROGRESS NOTE ---
DATE: 02/08/2019 ADDENDUM: Patient had x-ray of the chest that shows evidence of nonspecific bibasilar atelectasis or infiltrates. She is currently on antibiotics for presumed pneumonia. We will continue those antibiotics and follow up on her chest x-ray. cc: Porfirio Almaguer MD
[2019-02-08] MEDS: OFIRMEV 1000 MG/ISOTONIC SOLN 1,000 MG/100 ML BOTTLE IV SCH ×2 (16:27→22:18)
[2019-02-08] MEDS: COZAAR PO SCH (16:27)
[2019-02-08] MEDS: DEMEROL IV PRN (18:30)
[2019-02-08] MEDS: PERIDEX MT SCH (22:06)
[2019-02-09] MEDS: ROCEPHIN 1 GM in NS 50 ML IV SCH (02:16)
[2019-02-09] MEDS: OFIRMEV 1000 MG/ISOTONIC SOLN 1,000 MG/100 ML BOTTLE IV SCH ×2 (02:16→08:41)
[2019-02-09] MEDS: ZITHROMAX 500 MG/NS 500 MG/250 ML IVPB IV SCH (02:16)
[2019-02-09] MEDS: NS 1,000 ML IV SCH ×3 (04:39→18:09)
[2019-02-09] MEDS: PEPCID IV SCH (04:39)
[2019-02-09 07:16] LABS: BASO# 0.01 X1000 (0.0-0.2); BASO% 0.1 % (0.0-0.8); HEMATOCRIT 39.4 % (37.0-47.0); HEMOGLOBIN 12.5 g/dL (12.0-16.0); LYMPH# 0.87 X1000 (1.2-3.4); LYMPH% 7.8 % (20.5-51.1); MCH 30.6 PG (27-31); MCHC 31.7 g/dL (33-37); MCV 96.6 FL (81-99); MONO# 1.33 X1000 (0.11-0.59); MONO% 11.9 % (1.7-9.3); MPV 10.8 FL (7.4-10.4); NEUT# 8.95 X1000 (1.4-6.5); NEUT% 80.2 % (42.2-75.2); PLT 207 X1000 (130-400); RBC 4.08 XMIL (4.2-5.4); RDW 13.3 % (11.5-14.5); WBC 11.16 X1000 (4.8-10.8)
--- NOTE | 2019-02-09 07:20 | Diag Imaging Result Doc PS360 ---
EXAM: CHEST-1 VIEW HISTORY: pneumonia TECHNIQUE: Chest single view COMPARISON: 02/07/2029 FINDINGS: Poor inspiratory effort. No cardiomegaly. Atelectasis versus a small infiltrate in the left base. There is a small left pleural effusion. The nasogastric tube has been removed. Moderate sized hiatal hernia. IMPRESSION: Mild interval improvement. Electronically signed by Gerald Clarke 02/09/2019 7:18 AM
[2019-02-09 07:45] LABS: AGAP 13; ALB/GLOB RATIO 1.3; ALBUMIN 3.3 g/dL (3.5-5.0); ALKALINE PHOSPHATASE 59 U/L (32-104); BUN 19 mg/dL (8-22); CHLORIDE 104 mmol/L (98-107); COSMO 280; CREATININE 0.9 mg/dL (0.5-0.9); ESTIMATED GFR > 60; GLUCOSE 108 mg/dL (70-104); GOT 41 U/L (10-30); GPT 37 U/L (10-36); POTASSIUM 4.3 mmol/L (3.5-5.1); SODIUM 139 mmol/L (136-145); TCO2 22 mmol/L (25-35); TOTAL BILIRUBIN 0.47 mg/dL (0.20-1.00); TOTAL PROTEIN 5.9 g/dL (6.3-8.3)
[2019-02-09] MEDS: DEMEROL IV PRN (08:40)
[2019-02-09] MEDS: COZAAR PO SCH (08:41)
[2019-02-09] MEDS: PERIDEX MT SCH ×2 (08:41→23:03)
[2019-02-09] MEDS ORDERED: SALINE LOCK IV FLUID XX ONE (11:01)
--- NOTE | 2019-02-09 12:07 | GENERAL SURGERY PROGRESS NOTE ---
DATE: 02/09/2019 SUBJECTIVE: The patient is doing well this morning. No acute events or complaints overnight. Mild pain. No nausea or vomiting. OBJECTIVE: Vital signs: She is afebrile. Vital signs are stable. General: She is awake, alert, oriented x3. No acute distress. GI: Soft, nondistended, appropriately tender. Incisions are clean, dry, and intact. She has a few bowel sounds. Urine output is 1.9 L. LABORATORY: White blood cell count 11, hemoglobin 12. Complete metabolic profile reviewed and unremarkable. ASSESSMENT AND PLAN: A 78-year-old female postoperative day 1 laparoscopic Bart fundoplication. We will start her on a clear liquid diet today. I have encouraged ambulation. If she tolerates this, then we can plan discharge tomorrow. cc: Bishnu Saldana MD
--- NOTE | 2019-02-09 12:40 | PROGRESS NOTE ---
DATE: 02/09/2019 SUBJECTIVE: Patient without any new complaints. States her abdomen is feeling better. Her notes that overnight she has had a marked improvement in her mental alertness. PHYSICAL EXAMINATION: Vital signs: Temperature 98 degrees, pulse 72, respiratory rate 18, blood pressure 156/70. General: Patient is awake, alert. She is pleasant. She is in no respiratory distress. HEENT: Normocephalic. Neck: Supple. Cardiovascular: Regular rate. Chest: Clear. Abdomen: Soft. Extremities: Moves all extremities. Neurologic: No changes. ASSESSMENT: 1. Large incarcerated diaphragmatic hernia, status post repair. 2. Asthma, improved. 3. Obstructive sleep apnea. 4. Obesity. 5. Hypoxemia. 6. Hypertension. PLAN: Overall, patient is improving. Chest x-ray is better. Lung exam is improving. She is on Rocephin and azithromycin. We are going to continue current course. Hopefully, she can advance her diet soon and we can consider changing her to oral antibiotic. cc: Sadiq Denise MD
[2019-02-09] MEDS: NORCO-10 PO PRN (16:32)
[2019-02-10] MEDS: ROCEPHIN 1 GM in NS 50 ML IV SCH (00:29)
[2019-02-10] MEDS: ZITHROMAX 500 MG/NS 500 MG/250 ML IVPB IV SCH (01:41)
[2019-02-10] MEDS: NS 1,000 ML IV SCH (03:11)
[2019-02-10] MEDS: SODIUM CHLORIDE 0.9% INJ SCH (05:46)
[2019-02-10] MEDS: PEPCID IV SCH ×3 (05:46→17:09)
[2019-02-10] MEDS ORDERED: MIRALAX PO SCH (09:00)
[2019-02-10] MEDS: COZAAR PO SCH (09:07)
[2019-02-10] MEDS: PERIDEX MT SCH ×2 (09:07→20:29)
--- NOTE | 2019-02-10 09:10 | PROGRESS NOTE ---
DATE: 02/10/2019 SUBJECTIVE: Ms. Alarcon is doing pretty well. She slept good last night. She is still in a lot of pain when she gets up following surgery. Still has her Johnston catheter in. She has not had a bowel movement. OBJECTIVE: Vital Signs: Temp 98 degrees, pulse 90, respirations 18, blood pressure 154/70. HEENT: Pupils are equal and round. Lungs: Clear in all lung leon. Cardiovascular: Regular rhythm and rate without murmur or S3. Abdomen: Soft. Skin: Warm and dry. Urine output is 1200 mL. ASSESSMENT AND PLAN: 1. Large incarcerated diaphragmatic hernia, status post repair. Doing well. She is still in a lot of pain. They have to plan a trip to go back to [place], so continue to try and get her up. I am going to take her Johnston catheter out. 2. I am going to give her some MiraLAX and make sure her bowels are moving. She is still on full liquid diet. 3. History of asthma. She is breathing comfortably. No sign of bronchospasm. 4. Obesity. 5. Hypoxemia when she presented, which is resolved. 6. Hypertension. Blood pressure well controlled. Will put her on MiraLAX 17 grams in 8 ounces of water twice a day. Take the Johnston catheter out. Continue to get her up. Continue physical therapy. I will stop her azithromycin. cc: Carlos Haro MD
[2019-02-10] MEDS: MIRALAX PO SCH (20:29)
[2019-02-11] MEDS: ROCEPHIN 1 GM in NS 50 ML IV SCH (01:00)
[2019-02-11] MEDS: PEPCID IV SCH (05:53)
[2019-02-11 07:57] VITALS: BP 157/92
--- NOTE | 2019-02-11 08:24 | GENERAL SURGERY PROGRESS NOTE ---
DATE: 02/10/2019 SUBJECTIVE: The patient has had some discomfort [*] PHYSICAL EXAMINATION: Vital Signs: Stable. [*]Gastrointestinal: Soft, nondistended [*]She continues to have some discomfort [*] PLAN: [*]diet as tolerated. She will see DR. Jamil tomorrow. She will likely be ready for discharge to home tomorrow. She does have a long trip back to [place]. Therefore, we are being more cautious prior to discharge. cc: Bishnu Saldana MD
--- NOTE | 2019-02-11 09:12 | DISCHARGE SUMMARY ---
ADMISSION DATE: 02/06/2019 DISCHARGE DATE: 02/11/2019 HISTORY AND HOSPITAL COURSE: This 78-year-old was admitted on 02/06/2019 and discharged on 02/11/2019. Her and her were traveling from [place], and she developed abdominal pain, and was admitted here to this hospital on 02/06/2019. This is a 78-year-old female who came in with past medical history of hypertension, hyperlipidemia, asthma, sleep apnea, gastroesophageal reflux disease, hiatal hernia, restless legs syndrome. Wears O2 at night. Had a hysterectomy in 2008, had part of her colon removed secondary to flat polyp. She reports that her and her were on their way to [place] for vacation. They stopped for lunch. She started having immediate episodic epigastric pain with nausea and vomiting that radiated to the left side of her back. Pain was sharp and burning. It felt like she was having heartburn. Workup in the emergency room with CT scan suggested possible small-bowel obstruction. However, consulted Dr. Conor Jamil, and saw a paraesophageal hernia, so symptomatic paraesophageal hernia. Dr. Jamil offered her surgery, or she could try and go back home and get surgery. She wanted to get it here. She had an upper GI series on 02/07/2019. Large paraesophageal hernia that was also seen on recent CT scan. Barium flows freely through the diaphragm defect, indicating that there was no complete obstruction. Surgery was performed on 02/08/2019, and she did well postop, able to swallow, eating well, and I think she is ready for discharge. Would like to try and head back to [place]. DISCHARGE MEDICATIONS: We have her on Pepcid 20 mg p.o. twice a day, Cozaar 100 mg a day, MiraLAX 17 grams p.o. twice a day, Requip 1 mg at bedtime, and I will give her some [place] 7.5, give her 20 of them to take as needed. cc: Carlos Haro MD
--- NOTE | 2019-02-11 09:24 | GENERAL SURGERY PROGRESS NOTE ---
DATE: 02/11/2019 Ms. Alarcon is now 3 days after her laparoscopic diaphragmatic hernia repair with Bart fundoplication and gastropexy. She is doing generally well. She is swallowing liquid satisfactory. I will give her some soft food today. If she tolerates that fine, it is okay with me that she be discharged. I have instructed her regarding her diet and activity. We will certainly be glad to answer any questions for her after she leaves or talk with her physician in [place] if he has further questions. cc: Carlos Enrique Jamil MD
[2019-02-11] MEDS: MIRALAX PO SCH (10:14)
[2019-02-11] MEDS: NORCO-10 PO PRN (10:18)
[2019-02-11] MEDS: COZAAR PO SCH (10:18)
[2019-02-11] MEDS: PERIDEX MT SCH (10:18)
== END 2019-02-11 11:42 | disposition home or self-care (01) | DRG 328 ==
LOC: SUPCPDRO → ED 15:18 → SUATTDRO 15:19 → EDIPHOLD 02-07 00:09 → 3N 02-07 10:32 → 4N 02-07 10:40
PROVIDERS: ATTEND Emergency Medicine